=== PATIENT | female | born 1995 | race Caucasian/White ===

== ENCOUNTER 2017-06-27 01:29 | Emergency (ER) | payer BC ==
[~2017-06-27] VITALS: Ht 175.3 cm; Wt 134.7 kg
[2017-06-27] MEDS ORDERED: MEDROL DOSEPAK4 MG PO (02:25)
[2017-06-27] MEDS ORDERED: NAPROSYN500 MG PO (02:25)
[2017-06-27 02:34] VITALS: BP 112/78
== END 2017-06-27 02:34 | disposition home or self-care (01) ==
LOC: EME 01:29
DX: M79.671 Pain in right foot (principal)
CPT/HCPCS: 73630; 99281; 99283

== ENCOUNTER → 2017-07-10 | Outpatient (CLI) | payer BC ==
[~2017-07-10] MED LIST: MEDROL DOSEPAK4 MG PO; NAPROSYN500 MG PO
== END | disposition home or self-care (01) ==
LOC: NUC 06-24 08:00
DX: R10.11 Right upper quadrant pain (principal)
CPT/HCPCS: 78227; A9537; J2805